=== PATIENT | female | born 1995 | race Hispanic/Latino ===

== ENCOUNTER 2018-03-08 11:55 | Emergency (ER) | payer OTHER ==
--- NOTE | 2018-03-08 12:40 | EDPHYS ---
Physician Documentation [facility] Name: Nikole Rodriguez Age: 22 yrs Sex: Female : 1995 Arrival Date: 03/08/2018 Time: 12:00 Bed 15 Private MD: None, None ED Physician Nadeem Rene HPI: 03/08 12:33 This 22 yrs old Female presents to ER via Ambulatory with complaints of Back pm1 Pain. 12:33 The patient presents with pain that is acute. The symptoms are located in the left pm1 subscapular area. Onset: The symptoms/episode began/occurred just prior to arrival. The pain does not radiate. Associated signs and symptoms: Pertinent negatives: chest pain, dysuria, fever, nausea, vomiting. The problem was sustained when bending over. Modifying factors: The patient symptoms are alleviated by remaining still, rest, the patient symptoms are aggravated by bending, Twisting. Severity of symptoms: in the emergency department the symptoms are unchanged. The patient has not experienced similar symptoms in the past. 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 Bent over to [employer] a glass and when she got up her left side of her back started hurting. 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 - Social history:: Smoking status: Patient uses tobacco products, denies chronic smoking, but will smoke occasionally, Patient uses alcohol, occasionally. - Ebola Screening: : Patient negative for fever greater than or equal to 101.5 degrees Fahrenheit, and additional compatible Ebola Virus Disease symptoms Patient denies exposure to infectious person Patient denies travel to an Ebola-affected area in the 21 days before illness onset. ROS: 12:33 Constitutional: Negative for fever, chills, and weight loss, Eyes: Negative for injury, pm1 pain, redness, and discharge, ENT: Negative for injury, pain, and discharge, Neck: Negative for injury, pain, and swelling, Cardiovascular: Negative for chest pain, palpitations, and edema, Respiratory: Negative for shortness of breath, cough, wheezing, and pleuritic chest pain, Abdomen/GI: Negative for abdominal pain, nausea, vomiting, diarrhea, and constipation. 12:33 : Negative for injury, bleeding, discharge, and swelling, MS/Extremity: Negative for injury and deformity, Skin: Negative for injury, rash, and discoloration, Neuro: Negative for headache, weakness, numbness, tingling, and seizure. 12:33 Back: Positive for of the left subscapular area, pain. Exam: 12:33 Constitutional: This is a well developed, well nourished patient who is awake, alert, pm1 and in no acute distress. Head/Face: Normocephalic, atraumatic. Neck: Trachea midline, no thyromegaly or masses palpated, and no cervical lymphadenopathy. Supple, full range of motion without nuchal rigidity, or vertebral point tenderness. No Meningismus. Chest/axilla: Normal chest wall appearance and motion. Nontender with no deformity. No lesions are appreciated. Cardiovascular: Regular rate and rhythm with a normal S1 and S2. No gallops, murmurs, or rubs. Normal PMI, no JVD. No pulse deficits. Respiratory: Lungs have equal breath sounds bilaterally, clear to auscultation and percussion. No rales, rhonchi or wheezes noted. No increased work of breathing, no retractions or nasal flaring. Abdomen/GI: Soft, non-tender, with normal bowel sounds. No distension or tympany. No guarding or rebound. No evidence of tenderness throughout. 12:33 Skin: Warm, dry with normal turgor. Normal color with no rashes, no lesions, and no evidence of cellulitis. MS/ Extremity: Pulses equal, no cyanosis. Neurovascular intact. Full, normal range of motion. 12:33 Back: normal spinal alignment noted, muscle spasm, is appreciated in the left subscapular area, Pain to area reproduced with patient bending and twisting, No vertebral tenderness present. 12:33 Neuro: Orientation: is normal, Motor: moves all fours, strength is normal, strength is 5/5 in all extremities, Sensation: is normal, no obvious gross deficits, Gait: is steady, at a normal pace, without difficulty. Vital Signs: 12:04 BP 117 / 85; Pulse 74; Resp 18; Temp 98.2(O); Pulse Ox 100% on R/A; Weight 99.79 kg; ss Height 5 ft. 3 in. (160.02 cm); Pain 5/10; 12:04 Body Mass Index 38.97 (99.79 kg, 160.02 cm) ss MDM: 12:18 Patient medically screened. pm1 12:33 Data reviewed: vital signs. Data interpreted: Pulse oximetry: on room air is 100 %. pm1 Interpretation: normal. 12:37 Counseling: I had a detailed discussion with the patient and/or guardian regarding: the pm1 historical points, exam findings, and any diagnostic results supporting the discharge/admit diagnosis, the need for outpatient follow up, to return to the emergency department if symptoms worsen or persist or if there are any questions or concerns that arise at home. 03/08 13:06 Order name: Urine Dipstick--Ancillary (enter results); Complete Time: 13:14 ag 03/08 13:06 Order name: Urine --Ancillary (enter results); Complete Time: 13:14 ag 03/08 12:32 Order name: Urine Test (obtain specimen); Complete Time: 13:00 pm1 03/08 12:32 Order name: Urine Dipstick-Ancillary (obtain specimen); Complete Time: 13:00 pm1 Administered Medications: 13:06 Drug: Tylenol #3 (300 mg-30 mg) 1 tablet Route: PO; ae1 13:06 Drug: Flexeril 10 mg Route: PO; ae1 13:06 Drug: Ibuprofen 600 mg Route: PO; ae1 Disposition: 17:35 Co-signature as Attending Physician, Nadeem Rene MD. rn Disposition: 03/08/18 12:39 Discharged to Home. Impression: Strain of muscle and tendon of back wall of thorax. - Condition is Stable. - Discharge Instructions: Back Pain, Adult, Muscle Strain, Back Injury Prevention, [id number]. - Prescriptions for Naprosyn 500 mg Oral Tablet - take 1 tablet by ORAL route 2 times per day take with food; 30 tablet. Cyclobenzaprine 10 mg Oral Tablet - take 1 tablet by ORAL route every 8 hours As needed; 30 tablet. - Medication Reconciliation Form, Thank You Letter, Prescription Opioid Use form. - Follow up: Emergency Department; When: As needed; Reason: Worsening of condition. Follow up: Private Physician; When: 2 - 3 days; Reason: Recheck today's complaints, Continuance of care, Re-evaluation by your physician. - Problem is new. - Symptoms have improved. Signatures: Dispatcher [employer] EDMS Nadeem Rene MD MD rn Smirch, Shelby, RN RN Ke Gunter, PROCESS ENVIRONMENTAL TECHNICIAN PROCESS ENVIRONMENTAL TECHNICIAN pm1 Jace Ma RN RN ae1 Corrections: (The following items were deleted from the chart) 13:24 12:39 03/08/2018 12:39 Discharged to Home. Impression: Strain of muscle and tendon of ae1 back wall of thorax. Condition is Stable. Forms are Medication Reconciliation Form, Thank You Letter, Antibiotic Education, Prescription Opioid Use. Follow up: Emergency Department; When: As needed; Reason: Worsening of condition. Follow up: Private Physician; When: 2 - 3 days; Reason: Recheck today's complaints, Continuance of care, Re-evaluation by your physician. Problem is new. Symptoms have improved. pm1
--- NOTE | 2018-03-08 12:40 | ER ---
Nurse's Notes [facility] Name: Nikole Rodriguez Age: 22 yrs Sex: Female : 1995 Arrival Date: 03/08/2018 Time: 12:00 Bed 15 Private MD: None, None Diagnosis: Strain of muscle and tendon of back wall of thorax Presentation: 03/08 12:01 Presenting complaint: Patient states: i was picking up something at work today about 11 ss am, i felt like a pulled muscle on my L lower back; denies numbness and tingling on bilateral legs; pain is 5/10;. Transition of care: patient was not received from another setting of care. Onset of symptoms was March 08, 2018. Risk Assessment: Do you want to hurt yourself or someone else? Patient reports no desire to harm self or others. Initial Sepsis Screen: Does the patient meet any 2 criteria? No. Patient's initial sepsis screen is negative. Does the patient have a suspected source of infection? No. Patient's initial sepsis screen is negative. Care prior to arrival: None. 12:01 Method Of Arrival: Ambulatory ss 12:01 Acuity: ENRIKE 4 ss Triage Assessment: 12:03 General: Appears in no apparent distress. uncomfortable, Behavior is calm, cooperative, ss appropriate for age. Pain: Complains of pain in left low back and right low back. Musculoskeletal: Circulation, motion, and sensation intact. Capillary refill < 3 seconds. 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 - Social history:: Smoking status: Patient uses tobacco products, denies chronic smoking, but will smoke occasionally, Patient uses alcohol, occasionally. - Ebola Screening: : Patient negative for fever greater than or equal to 101.5 degrees Fahrenheit, and additional compatible Ebola Virus Disease symptoms Patient denies exposure to infectious person Patient denies travel to an Ebola-affected area in the 21 days before illness onset. Screenin:04 Abuse screen: Denies threats or abuse. Denies injuries from another. Nutritional ss screening: No deficits noted. Tuberculosis screening: No symptoms or risk factors identified. Fall Risk None identified. Assessment: 12:10 General: Appears in no apparent distress. uncomfortable, well groomed, Behavior is ae1 calm, cooperative. Pain: Complains of pain in right scapular area, right subscapular area and right mid back Pain currently is 5 out of 10 on a pain scale. Neuro: Level of Consciousness is awake, alert, obeys commands, Oriented to person, place, time, situation. Cardiovascular: Patient's skin is warm and dry. Respiratory: Airway is patent Respiratory effort is even, unlabored, Respiratory pattern is regular, symmetrical. GI: No signs and/or symptoms were reported involving the gastrointestinal system. Abdomen is round. : Urine is clear. EENT: No signs and/or symptoms were reported regarding the EENT system. Derm: Skin is normal. Musculoskeletal: Reports pain in right scapular area, right subscapular area and right mid back. Vital Signs: 12:04 BP 117 / 85; Pulse 74; Resp 18; Temp 98.2(O); Pulse Ox 100% on R/A; Weight 99.79 kg; ss Height 5 ft. 3 in. (160.02 cm); Pain 5/10; 12:04 Body Mass Index 38.97 (99.79 kg, 160.02 cm) ED Course: 12:00 Patient arrived in ED. mr 12:00 None, None is Private Physician. mr 12:03 Triage completed. ss 12:04 Arm band placed on right wrist. ss 12:05 Patient has correct armband on for positive identification. Bed in low position. Call ss light in reach. Side rails up X 1. 12:13 Jace aM, ATUL is Primary Nurse. ae1 12:14 Ke Jones NP is PHCP. pm1 12:14 Nadeem Rene MD is Attending Physician. pm1 13:08 No provider procedures requiring assistance completed. Patient did not have IV access ae1 during this emergency room visit. Administered Medications: 13:06 Drug: Tylenol #3 (300 mg-30 mg) 1 tablet Route: PO; ae1 13:06 Drug: Flexeril 10 mg Route: PO; ae1 13:06 Drug: Ibuprofen 600 mg Route: PO; ae1 Outcome: 12:39 Discharge ordered by . pm1 13:24 Discharged to home ambulatory. ae1 13:24 Condition: stable 13:24 Discharge instructions given to patient, Instructed on discharge instructions, follow up and referral plans. medication usage, Demonstrated understanding of instructions, Prescriptions given X 2. 13:24 Patient left the ED. ae1 Signatures: Yeimy Delgado Shelby, RN RN ss Ke Jones NP FLIGHT COMMUNICATIONS OFFICER pm1 Jace Ma RN RN ae1 Corrections: (The following items were deleted from the chart) 12:06 12:04 Pulse 74bpm; Resp 18bpm; Pulse Ox 100% RA; Temp 98.2F Oral; 99.79 kg; Height 5 ss ft. 3 in.; BMI: 38.9; Pain 5/10; ss
[2018-03-08] MEDS ORDERED: CYCLOBENZAPRINE 10 MG TAB ONE (12:57)
[2018-03-08] MEDS ORDERED: CODEINE 30MG/APAP 300MG TAB ONE (12:57)
[2018-03-08] MEDS ORDERED: IBUPROFEN 200 MG TAB PO ONE (12:57)
[2018-03-08 13:09] LABS: Urine Blood NEGATIVE (NEG); Urine Glucose NEGATIVE (NEG); Urine Protein NEGATIVE (NEG); Urine Specific Gravity 1.015 (1.005-1.030); Urine pH 5.5 (5.0-7.0)
== END 2018-03-08 13:24 | disposition home or self-care (01) ==
LOC: ER 11:55
DX: S29.012A Strain of muscle and tendon of back wall of thorax, initial encounter (principal); F17.200 Nicotine dependence, unspecified, uncomplicated; X50.1XXA Overexertion from prolonged static or awkward postures, initial encounter; Y93.89 Activity, other specified; Y92.89 Other specified places as the place of occurrence of the external cause; Y99.9 Unspecified external cause status
CPT/HCPCS: 81003; 81025; 99283